=== PATIENT | female | born 1980 | race Caucasian/White ===

== ENCOUNTER 2016-05-18 05:21 | Day surgery (SDC) | payer BC ==
[2016-05-17 19:09] LABS: HEMATOCRIT 41.1 % (36.0-48.0); HEMOGLOBIN 13.5 g/dL (12-16)
[~2016-05-18] VITALS: Ht 172.7 cm; Wt 71.7 kg
[~2016-05-18 05:21] MED LIST: ADDERALL XR 1010 M1 PO; PROZAC10 MG PO
[2016-05-18 07:52] VITALS: BP 112/73; Ht 172.7 cm; Wt 71.7 kg
[2016-05-18 08:11] LABS: HCG URINE NEGATIVE (NEGATIVE)
[2016-05-18] MEDS ORDERED: HYDROCODONE-APA1 TAB PO (11:11)
[2016-05-18] MEDS ORDERED: CYCLOBENZAPRINE10 MG PO (11:11)
--- NOTE | 2016-05-18 13:32 | NUR ---
1300- IV D/C'D, PT TOLERATED. CATHETER INTACT 1305- DISCHARGE INSTRUCTIONS COMPLETED AND SIGNED. PT VERBALIZED UNDERSTANDING. 1320- PT DISCHARGED HOME VIA WHEELCHAIR WITH .
--- NOTE | 2016-05-25 16:33 | OP ---
PATIENT NAME: RADHA RENEE MEDICAL RECORD: [id number] :80 LOCATION:[facility] ADMISSION DATE: SURGEON: LOGAN MOORE MD DATE OF OPERATION: 05/18/2016 PREOPERATIVE DIAGNOSIS: Left knee anterior cruciate ligament tear. POSTOPERATIVE DIAGNOSIS: Left knee anterior cruciate ligament tear. PROCEDURE PERFORMED: Left knee ACL reconstruction using an allograft. SURGEON: Jay Moore MD ANESTHESIA: General with a block for postop pain. CONDITION: She tolerated the procedure well, was transferred to the recovery room in stable condition at termination of the procedure. INDICATIONS: This is a pleasant 36-year-old female that injured her knee, had a complete ACL tear. This was unstable. She went to have a repair. We discussed risks, benefits, and alternatives including continued instability, continued pain. She understood and wished to proceed. OPERATIVE REPORT: The patient was taken to the operating room, placed in a supine position. General anesthesia was obtained. She had her left knee confirmed to be the correct site. It was prepped and draped in normal fashion. Procedure was begun by marking out portal sites and injecting them with 0.25% Marcaine with epinephrine. The anterolateral portal was established with the scope and inflow and superomedially for the outflow. 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 Coming down the medial gutter into the medial joint line, the medial joint looked very good. I did not see any distinct tears. I established an anterior medial portal under direct visualization. The medial meniscus was probed as was the femoral condyle and medial tibial plateau. There were no lesions noted. In the notch, her ACL was clearly torn and no significant fibers were noted. Placing her in a [id number] position and checking laterally, her lateral meniscus looked good. No significant tearing noted laterally. No significant fracturing into the lateral plateau from her injury. Therefore, we are back to notch, debrided the remnants of the ACL, then placed the tibial aiming device, drilled the pin into the tibial plateau. I overdrilled this with a size 10, as this was the size of our graft. I then proceeded to prep for the WasherLoc on the tibia, then used the [id number] guide, placed a pin, drilled the pin across the femur with [id number] guide, drilled the 4.5 guide drilled over this and then overdrilled it to the 30 mm ruchi as I measured it around 55 mm. I then marked my graft, pulled my graft into position after locking the button on the side of the cortex, then pulling the graft up into the purple line that had been marked. The leg was then taken through multiple flexion and extension movements following which the graft was fixed at the tibial side with the WasherLoc and placing the WasherLoc and drilling and placing a 48 screw. She was copiously irrigated. I went back into the knee and verified the position. There was no wall impingement or roof impingement. I therefore irrigated, debrided and then closed with a 2-0 Vicryl, then 3-0 Prolene. The portals were closed with 3-0 Prolene. She was placed in a knee immobilizer, awakened and transferred to the recovery room in stable condition. We will get started on post-ACL protocols OPERATIVE REPORT [id number] RADHA RENEE and proceed from this juncture. TRANSINT:[id number] Voice Confirmation ID: [id number] DOCUMENT ID: [id number] LOGAN MOORE MD at 1633 CC: [id number] DICTATION DATE: 05/18/16 1118 [employer] SALES CONSULTANT: 05/18/16 1302 [facility] [place] 05/18/16 [id number] [place] [id number]
== END 2016-05-18 13:20 | disposition home or self-care (01) ==
LOC: D.OPS 05:21 → D.PAN 08:45 → D.OPS 08:45 → D.PAN 09:00 → D.OPS 13:20
PROVIDERS: Anesthesiology; Orthopaedic Surgery Sports Medicine
DX: S83.512A Sprain of anterior cruciate ligament of left knee, initial encounter (principal); M22.42 Chondromalacia patellae, left knee

== ENCOUNTER → 2017-04-25 16:38 | Outpatient (CLI) | payer BC ==
[2016-05-18 07:52] VITALS: BMI 24.0
[~2017-04-25 16:38] MED LIST changes: +CYCLOBENZAPRINE10 MG PO; +HYDROCODONE-APA1 TAB PO
== END | disposition home or self-care (01) ==
LOC: D.MAMMO 14:00
DX: N64.4 Mastodynia (principal); Z80.3 Family history of malignant neoplasm of breast

== ENCOUNTER → 2017-12-13 08:48 | Outpatient (CLI) | payer BC ==
[2016-05-18 07:52] VITALS: BMI 24.0
== END | disposition home or self-care (01) ==
LOC: D.US 08:48
DX: N64.4 Mastodynia (principal)